=== PATIENT | female | born 1990 | race African-American/Black ===

== ENCOUNTER 2022-05-02 12:53 | Emergency (ER) | payer MEDICAID, OTHER ==
[~2022-05-02] VITALS: Ht 165.1 cm; Wt 80.0 kg
[~2022-05-02 12:53] MED LIST: IBUP-1493 PO
[2022-05-02 13:12] VITALS: BP 116/69
[2022-05-02] MEDS ORDERED: LORazepam 2 MG/ML VIAL IM ONE (13:45)
[2022-05-02] MEDS ORDERED: IBUPROFEN 600 MG TABLET PO ONE (13:45)
[2022-05-02] MEDS ORDERED: ACETAMINOPHEN 500 MG TABLET PO ONE (13:45)
[2022-05-02] MEDS ORDERED: IBUP-1554 PO (15:26)
== END 2022-05-02 16:00 | disposition home or self-care (01) ==
LOC: EMS 12:58
DX: S29.011A Strain of muscle and tendon of front wall of thorax, initial encounter (principal); F41.9 Anxiety disorder, unspecified; X58.XXXA Exposure to other specified factors, initial encounter; Y93.89 Activity, other specified; Y92.89 Other specified places as the place of occurrence of the external cause; Y99.8 Other external cause status
CPT/HCPCS: 99284; 71045; 93005; 96372; J2060

== ENCOUNTER 2022-11-03 14:22 | Emergency (ER) | payer OTHER ==
[~2022-11-03] VITALS: Ht 165.1 cm; Wt 89.1 kg
[~2022-11-03 14:22] MED LIST changes: +IBUP-1554 PO
[2022-11-03] MEDS ORDERED: PNV1TABL54 PO (14:26)
[2022-11-03 14:27] VITALS: BP 122/74; PULSE 82; RESP 16; TEMP 98.3
== END 2022-11-03 15:55 | disposition left against medical advice (07) ==
LOC: EMS 14:22
DX: O46.91 Antepartum hemorrhage, unspecified, first trimester (principal); Z3A.08 8 weeks gestation of pregnancy; Z53.21 Procedure and treatment not carried out due to patient leaving prior to being seen by health care provider
CPT/HCPCS: 99281; Z7502